=== PATIENT | male | born 1975 | race Caucasian/White ===

== ENCOUNTER 2018-02-18 10:35 | Emergency (ER) | payer SELFPAY ==
[~2018-02-18] VITALS: Ht 180.3 cm; Wt 127.0 kg
[~2018-02-18 10:35] MED LIST: ACHD5005 PO; AMOX-358 PO; HYDR1TAB PO; HYOS0.1283 SL; PANT40TA2 PO; PANT40TA3 PO; SULF1TAB35 PO; SULF1TAB38 PO
[2018-02-18 12:59] LABS: BASOPHILS % (AUTO) 0 % (0-10); EOSINOPHILS # (AUTO) 0.2 10^3/uL (0.0-0.3); EOSINOPHILS % (AUTO) 2 % (0-10); HEMATOCRIT 47 % (40-54); HEMOGLOBIN 16.9 G/DL (13.3-17.7); LYMPHOCYTES # (AUTO) 1.8 X 10^3 (1.0-4.0); LYMPHOCYTES % (AUTO) 25 % (12-44); MEAN CORPUSCULAR HEMOGLOBIN 31 PG (25-34); MEAN CORPUSCULAR HGB CONC 36 G/DL (32-36); MEAN CORPUSCULAR VOLUME 86 FL (80-99); MEAN PLATELET VOLUME 9.6 FL (7.4-10.4); MONOCYTES # (AUTO) 0.7 X 10^3 (0.0-1.0); MONOCYTES % (AUTO) 10 % (0-12); NEUTROPHILS # (AUTO) 4.5 X 10^3 (1.8-7.8); NEUTROPHILS % (AUTO) 63 % (42-75); PLATELET COUNT 217 10^3/uL (130-400); RED BLOOD COUNT 5.41 10^6/uL (4.35-5.85); RED CELL DISTRIBUTION WIDTH 13.5 % (10.0-14.5); WHITE BLOOD COUNT 7.2 10^3/uL (4.3-11.0)
--- NOTE | 2018-02-18 12:59 | ED Lower Extremity ---
General Chief Complaint: Lower Extremity Stated Complaint: LEFT LEG RED AND SWOLLEN Nursing Triage Note: Pt reports redness and swelling to area below L knee. Pt states he first noticed swelling on 02/15 and swelling has continued to increase. Nursing Sepsis Screen: No Definite Risk Source: patient, family Exam Limitations: no limitations History of Present Illness Date Seen by Provider: Feb 18, 2018 Time Seen by Provider: 12:45 Initial Comments Patient is a 42-year-old male who presents to the emergency room with left knee and lower extremity pain, redness, swelling that started 3 days ago. He reports that the pain and swelling has continued to increase over the past 3 days and also reports that he is developed intermittent fever. Onset: just prior to arrival, other (3 days ago) Pain/Injury Location: left knee Method of Injury: unknown Modifying Factors: Worse With Movement; Improves With Rest Allergies and Home Medications Allergies Coded Allergies: No Known Drug Allergies (Unverified , 05/12/12) Home Medications Amoxicillin/Potassium Clav 1 Each Tablet, 1 EACH PO BID Prescribed by: MARYAN COLBERT on 06/16/16 1331 Cephalexin 500 Mg Capsule, 500 MG PO BID Prescribed by: SAIDA WALKER on 02/18/18 1442 Hydrocodone Bit/Acetaminophen 1 Each Tablet, 1-2 TAB PO q6 PRN for MILD TO MODERATE PAIN Prescribed by: MARYAN COLBERT on 06/16/16 1331 Hyoscyamine Sulfate 0.125 Mg Tab.subl, 0.125 MG SL Q4H PRN for ABDOMINAL PAIN, ( Reported) Pantoprazole Sodium 40 Mg Tablet.dr, 40 MG PO DAILY, (Reported) Patient Home Medication List Home Medication List Reviewed: Yes Constitutional: see HPI, fever; No malaise, No weakness Musculoskeletal: joint pain (left knee swelling), joint swelling (left knee); No muscle stiffness, No muscle cramps, No muscle twitching Skin: see HPI, change in color (redness and swelling to the left knee) All Other Systems Reviewed Negative Unless Noted: Yes Past Qttkdjm-Sjtlyf-Bkxlzl Hx Past Med/Social Hx: Reviewed Nursing Past Med/Soc Hx Patient Social History Alcohol Use: Denies Use Recreational Drug Use: No Smoking Status: Current Everyday Smoker Recent Foreign Travel: No Contact w/Someone Who Travel: No Recent Infectious Disease Expo: No Recent Hopitalizations: No Immunizations Up To Date Date of Influenza Vaccine: May 02, 2016 Seasonal Allergies Seasonal Allergies: No Past Medical History Surgeries: Yes (ABDOMINAL SURGERY ) Appendectomy Respiratory: No Cardiac: No Neurological: No Gastrointestinal: No Musculoskeletal: No Endocrine: No Cancer: No Psychosocial: No Integumentary: No Family Medical History Reviewed Nursing Family Hx Physical Exam Vital Signs Vital Signs - First Documented 02/18/18 10:46 Temp 98.5 Pulse 98 Resp 18 B/P (MAP) 149/86 (107) Pulse Ox 94 O2 Delivery Room Air Capillary Refill : Less Than 3 Seconds Height, Weight, BMI Height: 5'11.00" Weight: 280lbs. 0.0oz. 127.830774id; 41.8 BMI Method:Stated General Appearance: WD/WN, no apparent distress Cardiovascular: regular rate, rhythm, no edema, no gallop, no JVD, no murmur Respiratory: chest non-tender, lungs clear, normal breath sounds, no respiratory distress, no accessory muscle use Knees: right knee non-tender, right knee normal inspection, right knee normal range of motion, right knee no evidence of injury; left knee soft tissue tenderness (erythema, prominent varicose veins in the left knee.), left knee swelling Ankles: right ankle non-tender, right ankle normal inspection, right ankle normal range of motion, right ankle no evidence of injury; left ankle swelling ( swelling to the left ankle) Neurologic/Psychiatric: alert, normal mood/affect, oriented x 3 Skin: normal color, warm/dry Progress/Results/Core Measures Results/Orders Lab Results Laboratory Tests Test 02/18/18 12:50 Range/Units White Blood Count 7.2 4.3-11.0 10^3/uL Red Blood Count 5.41 4.35-5.85 10^6/uL Hemoglobin 16.9 13.3-17.7 G/DL Hematocrit 47 40-54 % Mean Corpuscular Volume 86 80-99 FL Mean Corpuscular Hemoglobin 31 25-34 PG Mean Corpuscular Hemoglobin Concent 36 32-36 G/DL Red Cell Distribution Width 13.5 10.0-14.5 % Platelet Count 217 130-400 10^3/uL Mean Platelet Volume 9.6 7.4-10.4 FL Neutrophils (%) (Auto) 63 42-75 % Lymphocytes (%) (Auto) 25 12-44 % Monocytes (%) (Auto) 10 0-12 % Eosinophils (%) (Auto) 2 0-10 % Basophils (%) (Auto) 0 0-10 % Neutrophils # (Auto) 4.5 1.8-7.8 X 10^3 Lymphocytes # (Auto) 1.8 1.0-4.0 X 10^3 Monocytes # (Auto) 0.7 0.0-1.0 X 10^3 Eosinophils # (Auto) 0.2 0.0-0.3 10^3/uL Basophils # (Auto) 0.0 0.0-0.1 10^3/uL Prothrombin Time 13.4 12.2-14.7 SEC INR Comment 1.0 0.8-1.4 Activated Partial Thromboplast Time 30 24-35 SEC D-Dimer 1.03 H 0.00-0.49 UG/ML Sodium Level 141 135-145 MMOL/L Potassium Level 4.1 3.6-5.0 MMOL/L Chloride Level 109 H 98-107 MMOL/L Carbon Dioxide Level 26 21-32 MMOL/L Anion Gap 6 5-14 MMOL/L Blood Urea Nitrogen 14 7-18 MG/DL Creatinine 0.91 0.60-1.30 MG/DL Estimat Glomerular Filtration Rate > 60 BUN/Creatinine Ratio 15 Glucose Level 92 70-105 MG/DL Lactic Acid Level 1.16 0.50-2.00 MMOL/L Calcium Level 9.0 8.5-10.1 MG/DL Total Bilirubin 0.8 0.1-1.0 MG/DL Aspartate Amino Transf (AST/SGOT) 27 5-34 U/L Alanine Aminotransferase (ALT/SGPT) 27 0-55 U/L Alkaline Phosphatase 66 40-136 U/L C-Reactive Protein High Sensitivity 3.34 H 0.00-0.50 MG/DL Total Protein 7.0 6.4-8.2 GM/DL Albumin 4.1 3.2-4.5 GM/DL Micro Results Microbiology 02/18/18 Blood Culture - Preliminary, Resulted No growth 02/18/18 Blood Culture - Preliminary, Resulted No growth My Orders Orders - SAIDA WALKER Cbc With Automated Diff (02/18/18 12:43) Comprehensive Metabolic Panel (02/18/18 12:43) Lactic Acid Analyzer (02/18/18 12:43) Blood Culture (02/18/18 12:43) Protime With Inr (02/18/18 12:43) Partial Thromboplastin Time (02/18/18 12:43) Saline Lock/Iv-Start (02/18/18 12:43) Vital Signs Adult Sepsis Patie Q15M (02/18/18 12:43) Remove Rings In Anticipation O (02/18/18 12:43) Fibrin Degradation Products (02/18/18 12:43) Hs C Reactive Protein (02/18/18 12:44) Us Venous Lower Ext Lt (02/18/18 13:23) Ibuprofen Tablet (Motrin Tablet) (02/18/18 14:45) Vital Signs/I&O 02/18/18 02/18/18 10:46 14:52 Temp 98.5 98.5 Pulse 98 98 Resp 18 18 B/P (MAP) 149/86 (107) 149/86 (107) Pulse Ox 94 94 O2 Delivery Room Air Blood Pressure Mean: 107 Progress Progress Note : Progress Note Seen and evaluated the patient. The ultrasound report showed superficial thrombophlebitis. Along with thrombophlebitis I do believe that the patient has a cellulitis in the soft tissue. I will be treating with antibiotics and NSAIDs. The patient agrees with plans of care and discharge planning. Diagnostic Imaging Diagonstic Imaging: Ultrasound Comments PT STATUS: REG ER : 1975 PHYSICIAN: SAIDA WALKER ADMIT DATE: 02/18/18/ER Draft Date of Exam:02/18/18 US VENOUS LOWER EXT LT PROCEDURE: US left lower extremity venous. TECHNIQUE: Multiple Real-time grayscale images were obtained over the left lower extremity in various projections. Additional duplex Doppler and color Doppler images were also obtained. INDICATION: Pain. COMPARISON: None. FINDINGS: The left common femoral vein, superficial femoral vein, and popliteal veins appear patent and compressible with no visible thrombus seen. There is normal variability of waveform with augmentation. There are, however, prominent varicosities demonstrated with a 10.8 cm segment of a varicosity inferior to the left knee medially with thrombosis. IMPRESSION: 1. Varicosities with superficial thrombophlebitis in a prominent varicosity in the medial soft tissues inferior to the knee. 2. No evidence of deep venous thrombosis in the left lower extremity. 3. The report was called to Saida by [email or web address]@ 2:11 PM. Dictated on workstation # [id number] Dict: 02/18/18 1405 Trans: 02/18/18 1412 PABLITOB [id number] Interpreted by: JEANNETTE GUAMAN DO Electronically signed by: Departure Impression Primary Impression: Cellulitis Additional Impression: Superficial thrombophlebitis Disposition: HOME, SELF-CARE Condition: Stable/Unchanged Departure-Patient Inst. Decision time for Depature: 14:38 Referrals: NO,LOCAL PHYSICIAN (PCP) Primary Care Physician Patient Instructions: Cellulitis (Skin Infection), Adult (DC), Superficial Phlebitis Add. Discharge Instructions: Take ibuprofen 400 mg orally 4 times a day for 10 days. Take antibiotic as directed. Return back to the emergency room for increased pain, redness, streaks , shortness of breath or any other concerns as needed. Follow up with a doctor of your choice within 1 week for recheck. All discharge instructions reviewed with patient and/or family. Voiced understanding. Scripts Cephalexin (Keflex) 500 Mg Capsule 500 MG PO BID for 10 Days, #20 CAP Prov: SAIDA WALKER 02/18/18 SAIDA WALKER Feb 18, 2018 12:59
[2018-02-18 13:13] LABS: FIBRIN DEGRADATION PRODUCTS 1.03 UG/ML (0.00-0.49); PROTHROMBIN TIME PATIENT 13.4 SEC (12.2-14.7)
[2018-02-18 13:16] LABS: ALANINE AMINOTRANSFERASE 27 U/L (0-55); ALBUMIN 4.1 GM/DL (3.2-4.5); ALKALINE PHOSPHATASE 66 U/L (40-136); BILIRUBIN,TOTAL 0.8 MG/DL (0.1-1.0); BUN/CREATININE RATIO 15; CARBON DIOXIDE 26 MMOL/L (21-32); CHLORIDE 109 MMOL/L (98-107); CREATININE SERUM 0.91 MG/DL (0.60-1.30); GFR ESTIMATED > 60; GLUCOSE 92 MG/DL (70-105); POTASSIUM 4.1 MMOL/L (3.6-5.0); SODIUM 141 MMOL/L (135-145)
--- NOTE | 2018-02-18 14:13 | Diagnostic Imaging Report ---
PROCEDURE: US left lower extremity venous. TECHNIQUE: Multiple Real-time grayscale images were obtained over the left lower extremity in various projections. Additional duplex Doppler and color Doppler images were also obtained. INDICATION: Pain. COMPARISON: None. FINDINGS: The left common femoral vein, superficial femoral vein, and popliteal veins appear patent and compressible with no visible thrombus seen. There is normal variability of waveform with augmentation. There are, however, prominent varicosities demonstrated with a 10.8 cm segment of a varicosity inferior to the left knee medially with thrombosis. IMPRESSION: 1. Varicosities with superficial thrombophlebitis in a prominent varicosity in the medial soft tissues inferior to the knee. 2. No evidence of deep venous thrombosis in the left lower extremity. 3. The report was called to Marshall by [email or web address]@ 2:11 PM. Dictated by: Dictated on workstation # [id number]
[2018-02-18] MEDS ORDERED: CEPH-507 PO (14:42)
[2018-02-18] MEDS ORDERED: IBUPROFEN TABLET 200 MG TAB PO ONE (14:45)
[2018-02-18 14:52] VITALS: BP 149/86
== END 2018-02-18 14:52 | disposition home or self-care (01) ==
LOC: EDUNIT# 10:35 → ER 10:37
DX: L03.116 Cellulitis of left lower limb (principal); I80.02 Phlebitis and thrombophlebitis of superficial vessels of left lower extremity; F17.200 Nicotine dependence, unspecified, uncomplicated; Z90.89 Acquired absence of other organs
CPT/HCPCS: 36415; 80053; 83605; 85025; 85379; 85610; 85730; 86141; 87040